=== PATIENT | male | born 1980 | race African-American/Black ===

== ENCOUNTER 2018-06-18 01:40 | Emergency (ER) | payer MEDICAID ==
[2018-06-18] MEDS ORDERED: ACETAMINOPHEN 500 MG TAB ONE (01:58)
[2018-06-18] MEDS ORDERED: ACETAMINOPHEN 500 MG TAB PO ONE (01:59)
--- NOTE | 2018-06-18 02:12 | EDPHY ---
H & P Stated Complaint: R big toe pain Time Seen by Provider: 06/18/18 01:47 HPI/ROS: Chief Complaint: Right toe pain HPI: 38-year-old male states he was jumping over a fence and injured his toe. He says he landed and hyper flexed his right big toe. He has had pain and swelling since. Injury occurred about 12 hr ago. Denies any other injuries. ROS: 10 systems were reviewed and were negative except those elements noted in the HPI. PMH: Denies Social History: No smoking, no alcohol, no recreational drug use Family History: non-contributory Physical Exam: General: Awake, alert, no acute distress Extremities: Right great toe is swollen, dirty, there is no erythema, is not warm to the touch, he has tenderness over the proximal and distal phalanx. No midfoot tenderness. Capillary refills less than 2 sec. Sensations intact. Skin: No rash - Personal History Current Tetanus/Diphtheria Vaccine: Yes Current Tetanus Diphtheria and Acellular Pertussis (TDAP): Yes - Medical/Surgical History Hx Asthma: No Hx Chronic Respiratory Disease: No Hx Diabetes: No Hx Cardiac Disease: No Hx Renal Disease: No Hx Cirrhosis: No Hx Alcoholism: No Hx HIV/AIDS: No Hx Splenectomy or Spleen Trauma: No Other PMH: denies - Social History Smoking Status: Light smoker Constitutional: Initial Vital Signs Temperature (C) 36.6 C 06/18/18 01:42 Heart Rate 91 06/18/18 01:42 Respiratory Rate 16 06/18/18 01:42 Blood Pressure 133/90 H 06/18/18 01:42 O2 Sat (%) 96 06/18/18 01:42 O2 Delivery Mode Room Air Allergies/Adverse Reactions: No Known Allergies Allergy (Unverified 06/18/18 01:41) Home Medications: Medication Instructions Recorded NK [No Known Home Meds] 06/18/18 Medical Decision Making - Diagnostics Imaging Results: Right toilet x-rays negative for fracture per my interpretation Imaging: I viewed and interpreted images myself ED Course/Re-evaluation: 38-year-old male with right big toe pain 7 dairy to a hyperflexion injury. X- rays negative for acute fracture. Plan will be for ice, elevate, Tylenol Motrin , follow up with primary care. - Data Points Medications Given: Discontinued Medications Acetaminophen (Tylenol) 1,000 mg PO EDNOW ONE Stop: 06/18/18 02:00 Last Admin: 06/18/18 02:00 Dose: 1,000 mg Departure - Departure Disposition: Home, Routine, Self-Care Clinical Impression: Toe sprain Condition: Good Instructions: Sprain (ED) Additional Instructions: Take ibuprofen, 600 mg every 8 hr. You may alternate with acetaminophen, 1000 mg every 8 hr. Apply ice for 15 min of every hour while awake. Follow up with primary care physician in 3-4 days for further evaluation. Referrals: NONE *PRIMARY CARE P,. [Primary Care Provider] - As per Instructions [facility],. [Clinic] - As per Instructions
[2018-06-18 03:20] VITALS: BP 139/90
== END 2018-06-18 03:19 | disposition home or self-care (01) ==
DX: S93.501A Unspecified sprain of right great toe, initial encounter (principal); X50.0XXA Overexertion from strenuous movement or load, initial encounter; Y93.39 Activity, other involving climbing, rappelling and jumping off